=== PATIENT | female | born 1950 | race African-American/Black ===

== ENCOUNTER 2018-12-12 08:14 | Observation (INO) | payer MEDICARE ==
[2018-12-05 12:27] LABS: BASOPHILS % 0.7 % (0.0-1.0); EOSINOPHILS # (AUTO) 0.1 (0.0-0.4); EOSINOPHILS % 1.9 % (0.0-6.0); HEMATOCRIT 39.5 % (34.2-44.1); HEMOGLOBIN 12.6 g/dL (12.0-16.0); LYMPHOCYTES # (AUTO) 2.3 (1.0-3.2); LYMPHOCYTES % 40.6 % (18.0-39.1); MEAN CORPUSCULAR HEMOGLOBIN 27.8 pg (28-32); MEAN CORPUSCULAR HGB CONC 31.9 g/dL (31-35); MEAN CORPUSCULAR VOLUME 87.2 fL (81-99); MONOCYTES # (AUTO) 0.4 (0.2-0.8); MONOCYTES % 6.1 % (4.4-11.3); NEUTROPHILS # (AUTO) 2.9 (2.1-6.9); NEUTROPHILS % 50.5 % (38.7-80.0); PLATELET COUNT 320 x10e3/uL (140-360); RED BLOOD COUNT 4.53 x10e6/uL (3.6-5.1); RED CELL DISTRIBUTION WIDTH 14.4 % (11.7-14.4)
[2018-12-05 12:40] LABS: ANION GAP 12.9 mmol/L (8-16); BLOOD UREA NITROGEN 13 mg/dL (7-26); BUN/CREATININE RATIO 15 (6-25); CALCIUM 9.8 mg/dL (8.4-10.2); CARBON DIOXIDE 27 mmol/L (22-29); CHLORIDE 103 mmol/L (98-107); CREATININE, SERUM 0.88 mg/dL (0.57-1.11); EST GLOMERULAR FILTRATION RATE > 60 ML/MIN (60-); GLUCOSE 88 mg/dL (74-118); POTASSIUM 3.9 mmol/L (3.5-5.1); SODIUM 139 mmol/L (136-145)
--- NOTE | 2018-12-05 13:24 | Diagnostic Imaging Report ---
EXAMINATION: PA and lateral views of the chest. COMPARISON: None CLINICAL HISTORY: Preadmission protocol, prolapse DISCUSSION: Lines/tubes: None. Lungs: The lungs are well inflated and clear. No pneumonia or pulmonary edema. Pleura: No pleural effusion or pneumothorax. Heart and mediastinum: The cardiomediastinal silhouette is normal. Bones and soft tissues: No acute bony abnormalities. IMPRESSION: No acute cardiopulmonary abnormalities. Signed by: Dr. Jeremy Vale M.D. on 12/05/2018 1:20 PM
[~2018-12-12] VITALS: Ht 157.5 cm; Wt 93.5 kg
[~2018-12-12 08:14] MED LIST: ASPIR 8181 MG PO; CENTRAVITES TA1 EACH PO; FUROSEMIDE40 MG PO; LOSARTAN POTASS25 MG PO; METFORMIN HCL500 MG PO; SIMVASTATIN20 MG PO; VIT D3 PO; [UNRECOGNIZED DRUG - OTHER] PO
--- OUTSIDE RECORDS SUMMARY | 2018-12-12 08:18 | XMS REPORT ---
Author Author Jovani Robertson eClinicalWorks Address Unknown Phone Unavailable Care Team Providers Care Cigar Head Perforator Name Role Phone Jovani Robertson Unavailable Encounters Encounter Location Date Unknown [facility] Jun 05, 2014 Problems Problem Type Condition ICD-9 Code Onset Dates Condition Status Problem Essential hypertension, benign 401.1 Active Medications Medication Code System Code Instructions Start Date End Date Status Dosage Simvastatin MEDISPAN [address]-75 20 MG Orally Once a day Jun 05, 2014 Active 1 tablet in the evening Social History Social History Element Qualifiers Date Reported Tobacco Use: . Are you a: never smoker May 26, 2014 Use of recreational / street drugs? . Answer: No May 26, 2014 Sexual Hx: . Had sex in the last 12 months (vaginal, oral, or anal)?: No, Have you ever had an STD?: No May 26, 2014 Caffeine intake? . Status: Yes, What type: Coffee, Tea, Soft Drinks May 26, 2014 Do you exercise? . Answer: Yes May 26, 2014 Do you drink alcohol? . Status: Yes, Type: Socially May 26, 2014 Occupation: employed. May 26, 2014 Summary Purpose eClinicalWorks Submission
--- OUTSIDE RECORDS SUMMARY | 2018-12-12 08:18 | XMS REPORT ---
Author Author Jovani Robertson eClinicalWorks Address Unknown Phone Unavailable Care Team Providers Care Facility Maintenance Worker Name Role Phone Jovani Robertson Unavailable Encounters Encounter Location Date Unknown [facility] Sep 24, 2014 Unknown [facility] and Prevention Jun 05, 2014 Unknown [facility] Jul 20, 2014 Unknown [facility] Sep 24, 2014 Problems Problem Type Condition ICD-9 Code Onset Dates Condition Status Problem Essential hypertension, benign 401.1 Active Problem Diabetes mellitus without mention of complication, type II or unspecified type, uncontrolled 250.02 Active Medications Medication Code System Code Instructions Start Date End Date Status Dosage Lisinopril MEDISPAN [address]-20 20 mg Orally Once a day Sep 24, 2014 Active 1 tablet MetFORMIN HCl ER MEDISPAN [address]-08 500 MG Orally Twice a day Active 1 tablet with evening meal Social History Social History Element Qualifiers Date Reported Tobacco Use: . Are you a: never smoker Oct 04, 2014 Use of recreational / street drugs? . Answer: No Oct 04, 2014 Sexual Hx: . Had sex in the last 12 months (vaginal, oral, or anal)?: No, Have you ever had an STD?: No Oct 04, 2014 Caffeine intake? . Status: Yes, What type: Coffee, Tea, Soft Drinks Oct 04, 2014 Do you exercise? . Answer: Yes Oct 04, 2014 Do you drink alcohol? . Status: Yes, Type: Socially Oct 04, 2014 Occupation: employed. Oct 04, 2014 Family history Qualifier Description Comment Date Reported Father Comment not available Oct 04, 2014 Mother alive Comment not available Oct 04, 2014 Siblings alive Comment not available Oct 04, 2014 Summary Purpose eClinicalWorks Submission
--- OUTSIDE RECORDS SUMMARY | 2018-12-12 08:18 | XMS REPORT | Continuity of Care Document ---
Author Author [facility] Address Unknown Phone Unavailable Problems Problem Status Onset Date Classification Date Reported Comments Source Essential hypertension, benign Active Problem 09/19/2015 [facility] Diabetes mellitus without mention of complication, type II or unspecified type, uncontrolled Active Problem 09/19/2015 [facility] Routine general medical examination at health care facility Active Diagnosis 07/13/2015 [facility] Encounter for long-term use of other medications Active Diagnosis 07/13/2015 [facility] Screening for lipoid disorders Active Diagnosis 07/13/2015 [facility] Screening for thyroid disorder Active Diagnosis 07/13/2015 [facility] Screening for diabetes mellitus Active Diagnosis 07/13/2015 [facility] Other abnormal glucose Active Diagnosis 09/19/2015 [facility] Medications Medication Details Route Status Patient Instructions Ordering Provider Order Date Source Lisinopril 1 tablet Orally Active 20 mg Orally Once a day [facility] 09/24/2014 [facility] Micardis 1 tablet Orally Active 40 MG Orally Once a day [facility] 06/17/2014 [facility] Hydrochlorothiazide 1/2 to 1 tablet Orally Active 25 MG Orally [facility] MetFORMIN HCl ER 1 tablet with evening meal Orally Active 500 MG Orally Twice a day [facility] 06/17/2014 [facility] Simvastatin 1 tablet in the evening Orally Active 20 MG Orally Once a day [facility] 06/05/2014 [facility] Lisinopril-Hydrochlorothiazide 1 tablet Orally Active 20-12.5 MG Orally Once a day [facility] 05/25/2014 [facility] MetFORMIN HCl ER 1 tablet with evening meal Orally Active 500 MG Orally Twice a day [facility] Lisinopril-Hydrochlorothiazide 1 tablet Orally No Longer Active 20-12.5 MG Orally Once a day [facility] Hydrochlorothiazide 1/2 to 1 tablet Orally Active 25 MG Orally Once a day [facility] Micardis 1/2 tablet Orally Active 80 MG Orally Once a day [place] Allergies, Adverse Reactions, Alerts Substance Category Reaction Severity Reaction type Status Date Reported Comments Source penicillin Adverse Reaction Info Not Available Adverse Reaction Active 06/29/2014 [facility] sulfa Adverse Reaction Info Not Available Adverse Reaction Active 06/29/2014 [facility] Oyster Shell Adverse Reaction Info Not Available Adverse Reaction Active 06/29/2014 [facility] Codeine Phosphate Adverse Reaction Info Not Available Adverse Reaction Active 06/29/2014 [facility] Lisinopril-Hydrochlorothiazide Adverse Reaction dizziness Adverse Reaction Active 06/29/2014 [facility] Immunizations Immunization Date Given Site Status Last Updated Comments Source Results Order Name Results Value Reference Range Date Interpretation Comments Source Vital Signs Vital Sign Value Date Comments Source Weight 195.0 06/29/2014 [facility] Height 62 06/29/2014 [facility] Heart Rate 95 06/29/2014 [facility] Diastolic (mm Hg) 81 06/29/2014 [facility] Systolic (mm Hg) 131 06/29/2014 [facility] Weight 201.2 06/17/[facility] Height 62 06/17/[facility] Heart Rate 68 06/17/[facility] Diastolic (mm Hg) 88 06/17/[facility] Systolic (mm Hg) 137 06/17/[facility] Weight 201.4 05/25/2014 [facility] Height 62 05/25/2014 [facility] Heart Rate 89 05/25/2014 [facility] Diastolic (mm Hg) 113 05/25/2014 [facility] Systolic (mm Hg) 170 05/25/2014 [facility] Encounters Location Location Details Encounter Type Encounter Number Reason For Visit Attending Provider ADM Date DC Date Status Source [facility] high blood pressure [id number] 05/25/2014 05/25/2014 [facility] high blood pressure [id number] 05/25/2014 05/25/2014 [facility] Prevention high blood pressure [id number] 05/25/2014 05/25/2014 [facility] Primary Care and Prevention Unknown [id number] 06/05/2014 06/05/2014 [facility] and Prevention Unknown [id number] 06/05/2014 06/05/2014 [facility] and Prevention Unknown [id number] 06/05/2014 06/05/2014 [facility] and Prevention Unknown [id number] 06/05/2014 06/05/2014 [facility] Care and Prevention Unknown [id number] 06/05/2014 06/05/2014 [facility] and Prevention Unknown [id number] 06/05/2014 06/05/2014 [facility] and Prevention Unknown [id number] 06/05/2014 06/05/2014 [facility] and [facility] follow up on blood work [id number] 06/17/2014 06/17/2014 [facility] and Prevention Follow-Up on blood sugar and abpm [id number] 06/29/2014 06/29/2014 [facility] and Prevention Follow-Up on blood sugar and abpm [id number] 06/29/2014 06/29/2014 [facility] and Prevention Follow-Up on blood sugar and abpm [id number] 06/29/2014 06/29/2014 [facility] Care and Prevention Unknown [id number] 07/20/2014 07/20/2014 [facility] and Prevention Unknown [id number] 07/20/2014 07/20/2014 [facility] and Prevention Unknown [id number] 07/20/2014 07/20/2014 [facility] Care and Prevention Unknown [id number] 07/20/2014 07/20/2014 [facility] and Prevention Unknown [id number] 07/20/2014 07/20/2014 [facility] Care and Prevention Unknown [id number] 07/20/2014 07/20/2014 [facility] and Prevention Unknown [id number] 09/24/2014 09/24/2014 [facility] and Prevention Unknown [id number] 09/24/2014 09/24/2014 [facility] Care and Prevention Unknown [id number] 09/24/2014 09/24/2014 [facility] and Prevention Unknown [id number] 09/24/2014 09/24/2014 [facility] and Prevention Unknown [id number] 09/24/2014 09/24/2014 [facility] and Prevention Unknown [id number] 09/24/2014 09/24/2014 [facility] and Prevention Unknown [id number] 09/24/2014 09/24/2014 [facility] and Prevention Unknown [id number] 09/24/2014 09/24/2014 [facility] and Prevention Unknown [id number] 09/24/2014 09/24/2014 [facility] and Prevention Unknown [id number] 09/24/2014 09/24/2014 [facility] Procedures Procedure Code Date Perfomer Comments Source
--- OUTSIDE RECORDS SUMMARY | 2018-12-12 08:18 | XMS REPORT ---
Author Author Jovani Robertson eClinicalWorks Address Unknown Phone Unavailable Care Team Providers Care Audio Visual Production Specialist Name Role Phone Jovani Robertson Unavailable Encounters Encounter Location Date Unknown [facility] and Prevention Jun 05, 2014 Unknown [facility] Jul 20, 2014 Problems Problem Type Condition ICD-9 Code Onset Dates Condition Status Problem Essential hypertension, benign 401.1 Active Problem Diabetes mellitus without mention of complication, type II or unspecified type, uncontrolled 250.02 Active Medications Medication Code System Code Instructions Start Date End Date Status Dosage Simvastatin MEDISPAN [address]-48 20 mg Orally Once a day Jun 05, 2014 Active 1 tablet in the evening Social History Social History Element Qualifiers Date Reported Tobacco Use: . Are you a: never smoker Jun 29, 2014 Use of recreational / street drugs? . Answer: No Jun 29, 2014 Sexual Hx: . Had sex in the last 12 months (vaginal, oral, or anal)?: No, Have you ever had an STD?: No Jun 29, 2014 Caffeine intake? . Status: Yes, What type: Coffee, Tea, Soft Drinks Jun 29, 2014 Do you exercise? . Answer: Yes Jun 29, 2014 Do you drink alcohol? . Status: Yes, Type: Socially Jun 29, 2014 Occupation: employed. Jun 29, 2014 Summary Purpose eClinicalWorks Submission
--- OUTSIDE RECORDS SUMMARY | 2018-12-12 08:18 | XMS REPORT ---
Author Author Jovani Robertson eClinicalWorks Address Unknown Phone Unavailable Care Team Providers Care Director Electronics Name Role Phone Jovani Robertson Unavailable Encounters Encounter Location Date Unknown [place] Sep 24, 2014 Unknown [facility] Care and Prevention Jun 05, 2014 Unknown [facility] and Prevention Jul 20, 2014 Unknown [facility] Sep 24, 2014 Problems Problem Type Condition ICD-9 Code Onset Dates Condition Status Problem Essential hypertension, benign 401.1 Active Problem Diabetes mellitus without mention of complication, type II or unspecified type, uncontrolled 250.02 Active Medications Medication Code System Code Instructions Start Date End Date Status Dosage Lisinopril MEDISPAN [address]-04 20 mg Orally Once a day Sep 24, 2014 Active 1 tablet Social History Social History Element Qualifiers Date [...]
--- OUTSIDE RECORDS SUMMARY | 2018-12-12 08:19 | XMS REPORT ---
Author Author Jovani Robertson eClinicalWorks Address Unknown Phone Unavailable Care Team Providers Care Clerk Cashier Name Role Phone Jovani Robertson Unavailable Allergies, Adverse Reactions, Alerts Substance Reaction Event Type penicillin Info Not Available Drug Allergy sulfa Info Not Available Drug Allergy Oyster Shell Info Not Available Drug Allergy Codeine Phosphate Info Not Available Drug Allergy Encounters Encounter Location Date Unknown [facility] Primary Care and Prevention Sep 24, 2014 high blood pressure [facility] May 25, 2014 Follow-Up on blood sugar and abpm [facility] Jun 29, [address] [facility] Primary Care and Prevention Jun 05, 2014 Unknown [facility] Jul 20, 2014 Unknown [facility] Sep 24, 2014 Problems Problem Type Condition ICD-9 Code Onset Dates Condition Status Assessment Routine general medical examination at health care facility V70.0 Active Assessment Encounter for long-term (current) use of other medications V58.69 Active Problem Essential hypertension, benign 401.1 Active Assessment Screening for lipoid disorders V77.91 Active Assessment Screening for thyroid disorder V77.0 Active Assessment Essential hypertension, benign 401.1 Active Assessment Screening for diabetes mellitus V77.1 Active Medications Medication Code System Code Instructions Start Date End Date Status Dosage Lisinopril-Hydrochlorothiazide [facility] [address]-23 20-12.5 MG Orally Once a day May 25, 2014 Active 1 tablet Social History Social History Element Qualifiers Date Reported Tobacco Use . Are you a: never smoker Oct 04, 2014 Use of recreational or street drugs? . Answer: No Oct 04, 2014 Sexual Hx . Had sex in the last 12 months (vaginal, oral, or anal)?: No, Have you ever had an STD?: No Oct 04, 2014 Caffeine intake? . Status: Yes, What type: Coffee, Tea, Soft Drinks Oct 04, 2014 Do you exercise? . Answer: Yes Oct 04, 2014 Do you drink alcohol? . Status: Yes, Type: Socially Oct 04, 2014 Occupation employed. Oct 04, 2014 Family history Qualifier Description Comment Date Reported Father Comment not available Oct 04, 2014 Mother alive Comment not available Oct 04, 2014 Siblings alive Comment not available Oct 04, 2014 Vital Signs Date/Time: May 25, 2014 Weight 201.4 lbs Height 62 in Cardiac Monitoring Heart Rate 89 /min Blood Pressure Diastolic 113 mm Hg Blood Pressure Systolic 170 mm Hg Summary Purpose eClinicalWorks Submission
--- OUTSIDE RECORDS SUMMARY | 2018-12-12 08:19 | XMS REPORT ---
[facility] Address Unknown Phone Unavailable Care Team Providers Care Sports Betting Manager Name Role Phone Binu GRAVES Unavailable Unavailable Problems This patient has no known problems. Allergies, Adverse Reactions, Alerts This patient has no known allergies or adverse reactions. Medications This patient has no known medications. Results Test Description Test Time Test Comments Text Results Atomic Results Result Comments CHEST 2 VIEWS 2018-12-05 13:20:00 [place] [address] Patient Name: GEN TREVINO MR #: [id number] : 1950 Age/Sex: 68/F Req #: [id number] Adm Physician: Ordered by: DELFINA GRAVES MD Report #: [id number] Location: OR Room/Bed: Procedure: [id number] DX/CHEST 2 VIEWS Exam Date: 12/05/18 Exam Time: 1300 REPORT STATUS: Signed EXAMINATION: PA and lateral views of the chest. COM PARISON: None CLINICAL HISTORY: Preadmission protocol, prolapse DISCUSSION: Lines/tubes: None. Lungs: The lungs are well inflated and clear. No pneumonia or pulmonary edema. Pleura: No pleural effusion or pneumothorax. Heart and mediastinum: The cardiomediastinal silhouette is normal. Bones and soft tissues: No acute bony abnormalities. IMPRESSION: No acute cardiopulmonary abnormalities. Signed by: Dr. Kevin Hernandez M.D. on 12/05/2018 1:20 PM Dictated By: KEVIN HERNANDEZ MD [id number] Transcribed By: SCARLET on 12/05/18 1320 COPY TO: DELFINA GRAVES MD
--- OUTSIDE RECORDS SUMMARY | 2018-12-12 08:19 | XMS REPORT ---
Author Author Jovani Robertson eClinicalWorks Address Unknown Phone Unavailable Care Team Providers Care Windscreen Fitter Name Role Phone Jovani Robertson Unavailable Allergies, Adverse Reactions, Alerts Substance Reaction Event Type penicillin Info Not Available Drug Allergy sulfa Info Not Available Drug Allergy Oyster Shell Info Not Available Drug Allergy Lisinopril-Hydrochlorothiazide dizziness Drug Allergy Codeine Phosphate Info Not Available Drug Allergy Encounters Encounter Location Date Unknown [facility] Sep 24, 2014 high blood pressure [facility] May 25, 2014 Follow-Up on blood sugar and abpm [facility] Jun 29, 2014 follow up on blood work [facility] Jun 17, 2014 Unknown [facility] Jun 05, 2014 Unknown [facility] Jul 20, 2014 Unknown [facility] Sep 24, 2014 Problems Problem Type Condition ICD-9 Code Onset Dates Condition Status Problem Essential hypertension, benign 401.1 Active Assessment Essential hypertension, benign 401.1 Active Problem Diabetes mellitus without mention of complication, type II or unspecified type, uncontrolled 250.02 Active Assessment Other abnormal glucose 790.29 Active Assessment Diabetes mellitus without mention of complication, type II or unspecified type, uncontrolled 250.02 Active Medications Medication Code System Code Instructions Start Date End Date Status Dosage Micardis [facility] [address]-78 40 MG Orally Once a day Jun 17, 2014 Active 1 tablet Hydrochlorothiazide [facility] [address]-88 25 MG Orally Once a day Jun 17, 2014 Active 1/2 to 1 tablet Lisinopril-Hydrochlorothiazide [facility] [address]-80 20-12.5 MG Orally Once a day Inactive 1 tablet Simvastatin [facility] [address]-96 20 MG Orally Once a day Jun 05, 2014 Active 1 tablet in the evening MetFORMIN HCl ER [facility] [address]-02 500 MG Orally Twice a day Jun 17, 2014 Active 1 tablet with evening meal Social [...] available Oct 04, 2014 Vital Signs Date/Time: Jun 17, 2014 Weight 201.2 lbs Height 62 in Cardiac Monitoring Heart Rate 68 /min Blood Pressure Diastolic 88 mm Hg Blood Pressure Systolic 137 mm Hg Summary Purpose eClinicalWorks Submission
--- OUTSIDE RECORDS SUMMARY | 2018-12-12 08:19 | XMS REPORT ---
Author Author Jovani Robertson eClinicalWorks Address Unknown Phone Unavailable Care Team Providers Care Professor Of Literacy Name Role Phone Jovani Robertson Unavailable Allergies, Adverse Reactions, Alerts Substance Reaction Event Type penicillin Info Not Available Drug Allergy sulfa Info Not Available Drug Allergy Oyster Shell Info Not Available Drug Allergy Lisinopril-Hydrochlorothiazide dizziness Drug Allergy Codeine Phosphate Info Not Available Drug Allergy Encounters Encounter Location Date Unknown [facility] Sep 24, 2014 high blood pressure [facility] May 25, 2014 Follow-Up on blood sugar and abpm [facility] Jun 29, 2014 Unknown [facility] Jun 05, 2014 Unknown [facility] Jul 20, 2014 Unknown [facility] Sep 24, 2014 Problems Problem Type Condition ICD-9 Code Onset Dates Condition Status Problem Essential hypertension, benign 401.1 Active Assessment Other abnormal glucose 790.29 Active Problem Diabetes mellitus without mention of complication, type II or unspecified type, uncontrolled 250.02 Active Assessment Essential hypertension, benign 401.1 Active Assessment Diabetes mellitus without mention of complication, type II or unspecified type, uncontrolled 250.02 Active Medications Medication Code System Code Instructions Start Date End Date Status Dosage Hydrochlorothiazide [place] [address]-58 25 MG Orally Once a day Active 1/2 to 1 tablet Micardis [place] [address]-36 80 MG Orally Once a day Active 1/2 tablet Hydrochlorothiazide [place] [address]-82 25 MG Orally Once a day Jun 17, 2014 Active 1/2 to 1 tablet Simvastatin [place] [address]-51 20 MG Orally Once a day Jun 05, 2014 Active 1 tablet in the evening MetFORMIN HCl ER [place] [address]-13 500 MG Orally Twice a day Active 1 tablet with evening meal Micardis [place] [address]-20 40 MG Orally Once a day Jun 17, 2014 Active 1 tablet [facility] [address]-29 20-12.5 MG Orally Once a day Inactive 1 tablet MetFORMIN HCl ER [place] [address]-41 500 MG Orally Twice a day Jun [...] Oct 04, 2014 Vital Signs Date/Time: Jun 29, 2014 Weight 195.0 lbs Height 62 in Cardiac Monitoring Heart Rate 95 /min Blood Pressure Diastolic 81 mm Hg Blood Pressure Systolic 131 mm Hg Summary Purpose eClinicalWorks Submission
[2018-12-12] MEDS ORDERED: LIDOCAINE HCL 1% LOCAL INJ 20 ML VIAL ONE (14:46)
[2018-12-12] MEDS ORDERED: BUPIVACAINE 0.5%/EPI 30 ML SDV INJ ONE (14:46)
[2018-12-12] MEDS ORDERED: LIDOCAINE JELLY 2% 10ML URO-JET ONE (14:46)
[2018-12-12] MEDS ORDERED: FENTANYL CITRATE/PF 100MCG/2 ML INJ ONE (14:51)
[2018-12-12] MEDS ORDERED: MIDAZOLAM HCL 2 MG/2 ML VIAL ONE (14:51)
[2018-12-12] MEDS ORDERED: KETOROLAC TROMETHAMINE 30 MG/ML VIAL ONE (15:15)
[2018-12-12] MEDS ORDERED: PROPOFOL IV EMULSION 10 MG/ML 20 ML VIAL ONE (15:15)
[2018-12-12] MEDS ORDERED: LABETALOL HCL 5 MG/ML 20ML VIAL ONE (15:15)
[2018-12-12] MEDS ORDERED: SEVOFLURANE INHAL SOLN 250 ML PEN BTL ONE (15:15)
[2018-12-12] MEDS ORDERED: DEXAMETHASONE SOD PHOS INJ 4 MG/ML VIAL ONE (15:15)
[2018-12-12] MEDS ORDERED: LIDOCAINE HCL 2% LOCAL INJ 5 ML SDV VIAL INJ ONE (15:15)
[2018-12-12] MEDS ORDERED: ONDANSETRON HCL INJ 2MG/ML 2ML 2 MG/ML VIAL ONE (15:15)
[2018-12-12] MEDS ORDERED: ACETAMINOPHEN 1000 MG/100 ML 100 ML IV ONE (15:40)
[2018-12-12] MEDS ORDERED: NALOXONE HCL INJ 0.4 MG/ML AMP IV PRN (16:15)
[2018-12-12] MEDS ORDERED: HYDROMORPHONE 0.2MG/ML-SOD CHL 30ML PCA SYRINGE IV PRN (16:15)
[2018-12-12] MEDS ORDERED: HYDROMORPHONE 0.2MG/ML-SOD CHL 30ML PCA SYRINGE IV ONE (16:43)
--- NOTE | 2018-12-12 16:58 | Operative Report ---
DATE OF PROCEDURE: December 12, 2018 PREOPERATIVE DIAGNOSIS: Prolapsing thrombosed internal and external hemorrhoids. POSTOPERATIVE DIAGNOSIS: Prolapsing thrombosed internal and external hemorrhoids. OPERATION PERFORMED: Internal and external hemorrhoidectomy. ANESTHESIA: General. COMPLICATIONS: None. ESTIMATED BLOOD LOSS: 25 mL. DESCRIPTION OF PROCEDURE: With the patient lying in bed in the lithotomy position under good general anesthesia, the perineum was prepped with Betadine solution, draped in the usual manner. A standard anorectal block was then performed with quarter-percent Marcaine and 1% Xylocaine with epinephrine mixed in equal parts. After this was done, examination revealed the fact that the patient had 2 large groups of prolapsing hemorrhoids, one at the 12 o'clock position, the other one at the 7 o'clock position. Both were done in similar fashion. The base of the hemorrhoid was then ligated with an 0 chromic suture. The external component as well as a prolapsing component was then sharply resected. Hemostasis was ascertained and the base of the hemorrhoid was then further oversewn with the same 0 chromic suture. After this was done, the skin and mucosa were then reapproximated with interrupted sutures of 3-0 chromic. A Gelfoam pack impregnated with Xylocaine was placed. A dressing was applied. The sponge, lap and needle count was correct. The patient tolerated the procedure well and returned to the recovery room in stable condition. Job#: [id number] [id number]
[2018-12-12 17:50] VITALS: BP 126/79
[2018-12-12 17:57] VITALS: BP 126/79
[2018-12-12 18:01] VITALS: BP 126/79
--- NOTE | 2018-12-12 18:06 | NUR ---
Received patient from PACU. Patient A/O X3, even respirations on RA. Last BM Saturday, bowel sounds active. Right hand 20 gauge IV with NS @ 100mls/hr. DREDGING INSPECTOR pump at bedside with Dilaudid. SCD's in place. Mesh underwear with 4x4 gauze on bottom. Skin is intact. Bed in lowest position, wheels locked, side rails up x2, call light in reach. Will continue to monitor.
[2018-12-12] MEDS: ONDANSETRON HCL INJ 2MG/ML 2ML 2 MG/ML VIAL IV PRN (18:23)
--- NOTE | 2018-12-12 19:10 | NUR ---
REPORT RECEIVED FROM OFF GOING NURSE, PT RESTING IN BED ALERT AND ORIENTED, NO DISTRESS NOTED, DENIES NEEDS, IV INFUSING PER ORDER, DENIES NEEDS, CALL LIGHT IN REACH, INSTRUCTED TO CALL WITH NEEDS
[2018-12-12] MEDS: SODIUM CHLORIDE 0.9% 1000ML 1,000 ML IV SCH (19:30)
[2018-12-12 20:00] VITALS: BP 113/65
[2018-12-12] MEDS: SIMVASTATIN 20 MG TAB PO SCH (20:16)
[2018-12-13] VITALS (7 sets, daily range): BP systolic 92–135; BP diastolic 53–73
[2018-12-13] MEDS: SODIUM CHLORIDE 0.9% 1000ML 1,000 ML IV SCH ×3 (02:13→23:42)
[2018-12-13] MEDS: ONDANSETRON HCL INJ 2MG/ML 2ML 2 MG/ML VIAL IV PRN ×4 (04:23→16:08)
--- NOTE | 2018-12-13 05:13 | NUR ---
PT ASSISTED TO AND FROM RESTROOM TO VOID, NO DISTRESS NOTED, IV INFUSING PER ORDER, DRESSING INTACT WITH NO ACTIVE DRAINAGE NOTED, BILATERAL SCDs IN PLACE, BED LOCKED AND LOW, PT DENIES NEEDS, CALL LIGHT IN REACH, INSTRUCTED TO CALL WITH NEEDS, HOB ELEVATED
--- NOTE | 2018-12-13 07:25 | NUR ---
Received patient. Patient awake resting in bed at this time, no signs of distress. Call light in reach, bed in lowest position, wheels locked, side rails up x2. Will continue to monitor.
[2018-12-13] MEDS ORDERED: FUROSEMIDE 40 MG TAB PO SCH (09:00)
[2018-12-13] MEDS: FUROSEMIDE 20 MG TAB PO SCH (09:08)
[2018-12-13] MEDS: LOSARTAN POTASSIUM 25 MG TAB PO SCH (09:08)
--- NOTE | 2018-12-13 09:15 | NUR ---
Patient A/O X3, even respirations on RA. Last BM was Saturday, bowel sounds active. Patient is ambulatory and voids in the toilet. Right hand 20 gauge with NS @ 100mls/hr. 1+ nonpitting in feet bilaterally. Dilaudid CATEGORY PLANNER pump at bedside, pain 6/10. Patient is wearing mesh underwear with 4x4 gauze over surgical site. Call light in reach, will continue to monitor.
--- NOTE | 2018-12-13 13:59 | NUR ---
Paged Dr. Edwards for order to D/C RUBY DEVELOPER pump. Order given to D/C RUBY DEVELOPER pump.
[2018-12-13] MEDS: DIPHENHYDRAMINE HCL INJ 50 MG/ML VIAL IV PRN ×2 (16:08→22:14)
[2018-12-13] MEDS ORDERED: PROMETHAZINE 12.5MG/ NACL 0.9% 12.5 MG/50 ML BAG IV PRN (16:15)
[2018-12-13] MEDS ORDERED: TRAMADOL HCL 50 MG TAB PO PRN (16:15)
[2018-12-13] MEDS: HYDROCODONE/APAP 7.5MG-325MG 1 EA TAB PO PRN ×2 (18:10→22:14)
--- NOTE | 2018-12-13 19:10 | NUR ---
REPORT RECEIVED FROM OFF GOING NURSE, PT RESTING IN BED ALERT AND ORIENTED, NO DISTRESS, IV INFUSING PER ORDER, CALL LIGHT IN REACH, INSTRUCTED TO CALL WITH NEEDS
[2018-12-13] MEDS: SIMVASTATIN 20 MG TAB PO SCH (20:02)
[2018-12-13] MEDS: TRIAMCINOLONE ACET 0.1% CREAM 15 GM TUBE TOP SCH (20:02)
--- NOTE | 2018-12-13 21:20 | NUR ---
PT ASSISTED WITH SITZ BATH, NO DISTRESS NOTED, DENIES NEEDS, PT BACK IN BED RESTING ALERT AND ORIENTED, CALL LIGHT IN REACH, INSTRUCTED TO CALL WITH NEEDS
[2018-12-14 00:04] VITALS: BP 122/62
[2018-12-14 04:00] VITALS: BP 114/70
[2018-12-14] MEDS: HYDROCODONE/APAP 7.5MG-325MG 1 EA TAB PO PRN ×3 (04:25→17:32)
--- NOTE | 2018-12-14 05:33 | NUR ---
PT RESTING IN BED ALERT AND ORIENTED, NO DISTRESS NOTED, DENIES NEEDS, DENIES NAUSEA, IV INFUSING PER ORDER, CALL LIGHT IN REACH, INSTRUCTED TO CALL WITH NEEDS
--- NOTE | 2018-12-14 07:25 | NUR ---
Received patient. Patient resting in bed at this time, no signs of distress. Bed in lowest position, wheels locked, side rails up x2, call light in reach.
[2018-12-14 08:21] VITALS: BP 129/67
[2018-12-14] MEDS: SODIUM CHLORIDE 0.9% 1000ML 1,000 ML IV SCH (08:43)
[2018-12-14] MEDS: LOSARTAN POTASSIUM 25 MG TAB PO SCH (08:43)
[2018-12-14] MEDS: FUROSEMIDE 20 MG TAB PO SCH (08:43)
[2018-12-14] MEDS: DIPHENHYDRAMINE HCL INJ 50 MG/ML VIAL IV PRN (08:44)
[2018-12-14] MEDS: TRIAMCINOLONE ACET 0.1% CREAM 15 GM TUBE TOP SCH ×2 (08:44→15:38)
[2018-12-14 09:28] VITALS: BP 129/67
--- NOTE | 2018-12-14 10:55 | NUR ---
Patient A/O X3, even respirations on RA. Last BM 12/10, bowel sounds active. Right hand 20 gauge IV with NS @ 100mls/hr. 1+ non-pitting edema in both feet. Patient is ambulatory and voids in the toilet. Mesh underwear with 4x4 in place with slight amount of blood. Patient had shower this morning and applied Kenalog cream to bottom area. Call light in reach, will continue to monitor.
[2018-12-14 12:25] VITALS: BP 125/65
[2018-12-14] MEDS ORDERED: KEFLEX500 MG PO (17:06)
[2018-12-14] MEDS ORDERED: ULTRAM50 MG PO (17:06)
[2018-12-14 17:30] VITALS: BP 120/55
--- NOTE | 2018-12-14 17:30 | NUR ---
Removed patients IV. Catheter tip intact and pressure dressing applied.
--- NOTE | 2018-12-14 17:35 | NUR ---
Patient discharged from facility. Gathered all personal belongings including prescriptions and discharge instructions/education. No signs of distress when leaving facility.
== END 2018-12-14 17:34 | disposition home or self-care (01) ==
LOC: OR 08:14 → PACU V 16:17 → MED/SURG 17:26
PROVIDERS: ADMIT Surgery; ATTEND Surgery
DX: K64.5 Perianal venous thrombosis (principal); K64.8 Other hemorrhoids; E11.9 Type 2 diabetes mellitus without complications; I10 Essential (primary) hypertension; Z88.2 Allergy status to sulfonamides; Z91.040 Latex allergy status; Z88.5 Allergy status to narcotic agent; Z88.0 Allergy status to penicillin; Z91.013 Allergy to seafood; Z01.810 Encounter for preprocedural cardiovascular examination; Z01.812 Encounter for preprocedural laboratory examination; R11.0 Nausea; Z79.82 Long term (current) use of aspirin
CPT/HCPCS: 36415 ×4; 46260; 71046; 80048; 82948 ×3; 85025; 88304; 93005; G0378 ×3; J0131; J1100; J1200 ×2; J1885; J2001 ×2; J2250; J2405 ×2; J2704; J3490; J7030 ×3

== ENCOUNTER → 2021-08-07 | Outpatient (CLI) | payer MEDICARE ==
[~2021-08-07] MED LIST changes: +KEFLEX500 MG PO; +ULTRAM50 MG PO
== END ==
LOC: RAD 10:40
PROVIDERS: ATTEND Family Medicine
DX: R07.89 Other chest pain (principal); R06.02 Shortness of breath
CPT/HCPCS: 71046